=== PATIENT | female | born 1950 | race Caucasian/White ===

== ENCOUNTER 2022-04-24 04:19 | Day surgery (SDC) | payer OTHER ==
[2022-04-19 15:41] VITALS: BMI 33.4
[2022-04-24] MEDS ORDERED: LIDOCAINE HCL 1%, 10 MG/ML (20ML VIAL) ONE ×2 (09:21→12:21)
[2022-04-24] MEDS ORDERED: MIDAZOLAM HCL 2 MG/2 ML SINGLE DOSE VIAL ONE (11:20)
[2022-04-24] MEDS ORDERED: PROPOFOL 20 ML ONE ×3 (11:24→11:30)
[2022-04-24] MEDS ORDERED: ceFAZolin SODIUM 1 GM VIAL IVPB ONE (11:30)
[2022-04-24] MEDS ORDERED: LIDOCAINE HCL 1%, 10 MG/ML (20ML VIAL) NR ONE ×2 (11:44)
[2022-04-24] MEDS ORDERED: ELECTROLYTE-148 SOLN 1,000 ML IV SCH (12:45)
[2022-04-24] MEDS ORDERED: FENTANYL CITRATE/PF 50 MCG/ML VIAL ONE (13:03)
[2022-04-24] MEDS ORDERED: ONDANSETRON 4 MG/2 ML VIAL ONE ×2 (13:07→14:36)
[2022-04-24] MEDS: ONDANSETRON 4 MG/2 ML VIAL IVPUSH PRN ×2 (13:10→14:35)
[2022-04-24 15:18] VITALS: BP 116/67; PULSE 65; TEMP 97
== END 2022-04-24 15:05 | disposition home or self-care (01) ==
LOC: JASU-SURG 04:19
PROVIDERS: ATTEND Urology
PROC: 01HY0MZ Insertion of Neurostimulator Lead into Peripheral Nerve, Open Approach (ICD-10-PCS; principal; 2022-04-24 11:00)
DX: N39.41 Urge incontinence (principal); R35.0 Frequency of micturition
CPT/HCPCS: 64581; C1778; 76000-TC-FY; 94760

== ENCOUNTER 2022-05-01 04:26 | Day surgery (SDC) | payer OTHER ==
[2022-04-30 09:09] VITALS: BMI 34.2
[2022-05-01] MEDS ORDERED: oxyCODONE HCL 5 MG TABLET PO PRN (07:12)
[2022-05-01] MEDS ORDERED: PROMETHAZINE HCL 25 MG/1 ML VIAL IVPUSH PRN (07:12)
[2022-05-01] MEDS ORDERED: LACTATED RINGERS SOLUTION 1,000 ML IV SCH (07:15)
[2022-05-01] MEDS ORDERED: LIDOCAINE HCL 1%, 10 MG/ML (20ML VIAL) ONE (07:32)
[2022-05-01] MEDS ORDERED: MIDAZOLAM HCL 2 MG/2 ML SINGLE DOSE VIAL ONE (08:54)
[2022-05-01] MEDS ORDERED: PROPOFOL 20 ML ONE (08:54)
[2022-05-01] MEDS ORDERED: LIDOCAINE HCL/PF 2% SDV 5ML VIAL ONE (08:55)
[2022-05-01] MEDS ORDERED: SODIUM CHLORIDE 0.9% P/F 10 ML VIAL IJ ONE (08:55)
[2022-05-01] MEDS ORDERED: ceFAZolin SODIUM 1 GM VIAL ONE (08:55)
[2022-05-01] MEDS ORDERED: VANCOMYCIN 1,000 MG VIAL (RESTRICTED TO ID ONLY) ONE (08:55)
[2022-05-01] MEDS ORDERED: GLYCOPYRROLATE 0.2 MG/1 ML VIAL ONE (08:55)
[2022-05-01] MEDS ORDERED: LIDOCAINE HCL 1%, 10 MG/ML (20ML VIAL) NR ONE ×2 (08:57→09:33)
[2022-05-01] MEDS ORDERED: VANCOMYCIN 1 GM in D5W (PRE-DOCKED) 1,000 MG/250 ML IVPB ONE ×2 (08:58→09:10)
[2022-05-01] MEDS ORDERED: ceFAZolin SODIUM 1 GM VIAL IVPB ONE (09:08)
[2022-05-01] MEDS ORDERED: KETOROLAC TROMETHAMINE 30 MG/1 ML VIAL ONE (09:29)
[2022-05-01] MEDS ORDERED: ELECTROLYTE-148 SOLN 1,000 ML IV SCH (09:45)
[2022-05-01] MEDS ORDERED: ACETAMINOPHEN 1000 MG/100 ML BAG IVPB ONE (09:52)
[2022-05-01] MEDS ORDERED: ACETAMINOPHEN INJECTION 100 ML IVPB ONE (09:54)
[2022-05-01 11:01] VITALS: BP 130/77; PULSE 96; TEMP 97.8
== END 2022-05-01 11:10 | disposition home or self-care (01) ==
LOC: JASU-SURG 04:26
PROVIDERS: ATTEND Urology
PROC: 0JH70BZ Insertion of Single Array Stimulator Generator into Back Subcutaneous Tissue and Fascia, Open Approach (ICD-10-PCS; principal; 2022-05-01 09:00)
DX: N39.41 Urge incontinence (principal); E11.9 Type 2 diabetes mellitus without complications
CPT/HCPCS: 64590; L8679; 94760

== ENCOUNTER 2022-09-11 07:18 | Day surgery (SDC) | payer OTHER ==
[2022-09-06 16:18] VITALS: BMI 31.6
[2022-09-11] MEDS ORDERED: LIDOCAINE HCL/PF 2% SDV 5ML VIAL ONE (08:00)
[2022-09-11] MEDS ORDERED: PROPOFOL 120 ML ONE (08:01)
[2022-09-11 09:11] VITALS: BP 125/56; PULSE 75; RESP 16; TEMP 97.8
== END 2022-09-11 09:23 | disposition home or self-care (01) ==
LOC: FASU-ENDO 07:18
PROVIDERS: ATTEND Internal Medicine Gastroenterology
PROC: 0DB98ZX Excision of Duodenum, Via Natural or Artificial Opening Endoscopic, Diagnostic (ICD-10-PCS; 2022-09-11)
PROC: 0DB68ZX Excision of Stomach, Via Natural or Artificial Opening Endoscopic, Diagnostic (ICD-10-PCS; 2022-09-11)
PROC: 0DB48ZX Excision of Esophagogastric Junction, Via Natural or Artificial Opening Endoscopic, Diagnostic (ICD-10-PCS; 2022-09-11)
PROC: 0DJD8ZZ Inspection of Lower Intestinal Tract, Via Natural or Artificial Opening Endoscopic (ICD-10-PCS; principal; 2022-09-11 08:29)
DX: Z12.11 Encounter for screening for malignant neoplasm of colon (principal); K64.1 Second degree hemorrhoids; K57.30 Diverticulosis of large intestine without perforation or abscess without bleeding; K29.50 Unspecified chronic gastritis without bleeding; K21.00 Gastro-esophageal reflux disease with esophagitis, without bleeding; R10.13 Epigastric pain
CPT/HCPCS: 43239; G0121; 88305-TC; 88342-TC